=== PATIENT | male | born 1985 | race Caucasian/White ===

== ENCOUNTER 2020-05-25 05:17 | Emergency (ER) | payer OTHER ==
--- NOTE | 2020-05-25 05:28 | ED Physician Documentation ---
PD HPI NECK PAIN - Stated complaint Stated Complaint: NECK/SHOULDERS/ARMS PX - Chief complaint Chief Complaint: Back Pain - History obtained from History obtained from: Patient - History of Present Illness Timing - onset: How many months ago (1-2 months of on and off pain in neck and shoulders. More consistent and painful the past several days. No acute injury. 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 Started some machine workouts the past 1-2 weeks, but this was started hurting before he enrolle) Timing - details: Gradual onset, Still present (more consistent the past few days.), Waxing and waning Location: Upper, Right, Left, Other (hurts in trapezius insertion areas and extends to lateral suprascapular area.) Quality: Pain, Spasm, Aching Associated symptoms: Other (no radiation to arms/hands.). No: Fever, Weakness, Numbness Worsened by: Movement, Lifting, Other (he feels sore at work, and works as Tech with monitor/keyboard being in lower position that requires him to hunch and look downward.) Contributing factors: Other (he started a Crossfit workout machines 2 weeks ago but was already hurting. He stopped using the machines as neck was hurting more. Pain and tightness are still increasing.). No: Lifting, Twisting, Trauma Similar symptoms before: Has not had sx before Recently seen: Not recently seen Review of Systems Constitutional: denies: Fever, Chills Nose: denies: Rhinorrhea / runny nose, Congestion Throat: denies: Sore throat Respiratory: denies: Cough Skin: denies: Rash, Lesions Neurologic: denies: Focal weakness, Numbness PD PAST MEDICAL HISTORY - Past Medical History Past Medical History: No Cardiovascular: None Respiratory: None Neuro: None Musculoskeletal: None - Present Medications Home Medications: Ambulatory Orders Medication Instructions Recorded Confirmed HYDROcod/ACETAM 5/325 [Millsap 5/325] 1 ea PO Q6H PRN #18 tablet 05/25/20 Ibuprofen [Motrin] 600 mg PO TID PRN #25 tab 05/25/20 tiZANidine [Zanaflex] 4 mg PO Q8H PRN #25 tablet 05/25/20 - Allergies Allergies/Adverse Reactions: Allergies Allergy/AdvReac Type Severity Reaction Status Date / Time No Known Drug Allergies Allergy Verified 05/25/20 05:22 PD ED PE NORMAL - Vitals Vital signs reviewed: Yes - General General: Alert and oriented X 3, Well developed/nourished - Neck Neck: Supple, no meningeal sign, No adenopathy, Other (He has muscle tenderness at the bilateral trapezius insertion areas in the upper neck. There is also spasming and firmness felt on both lateral trapezius muscle areas. No midline tenderness. No rash or sores.) - Derm Derm: Normal color, Warm and dry - Neuro Neuro: Alert and oriented X 3, No motor deficit, No sensory deficit Results - Vitals Vitals: Vital Signs - 24 hr 05/25/20 05:20 Temperature 36.3 C L Heart Rate 65 Respiratory 20 Rate Blood Pressure 173/95 H O2 Saturation 98 Oxygen O2 Source Room air PD MEDICAL DECISION MAKING - ED course Complexity details: considered differential (Neck and shoulder muscular pain with tenderness. He has been using a massager that helps some but not consist ently. No red flags to suggest need for imaging or labs.), d/w patient Departure - Departure Disposition: 01 Home, Self Care Clinical Impression: Strain of neck muscle Qualifiers: Encounter type: initial encounter Qualified Code(s): S16.1XXA - Strain of mu scle, fascia and tendon at neck level, initial encounter Condition: Stable Record reviewed to determine appropriate education?: Yes Instructions: ED Spasm Neck No Injury Prescriptions: Ibuprofen [Motrin] 600 mg PO TID PRN #25 tab PRN Reason: Pain HYDROcod/ACETAM 5/325 [Millsap 5/325] 1 ea PO Q6H PRN #18 tablet PRN Reason: Pain tiZANidine [Zanaflex] 4 mg PO Q8H PRN #25 tablet PRN Reason: Spasms Comments: Heat and stretching for the neck and upper back muscles to reduce spasming. Continue with the massager that you have. And ibuprofen anti-inflammatory 3 times a day for a week. Take with food. Also use tizanidine muscle relaxant 3-4 times a day as directed. This will help with stiffness and spasms. To these add Tylenol or hydrocodone as needed for pains. Recheck if not improved well over the next several days and resolved over a week. Try to adjust your ergonomics and positioning of your monitor and keyboard at work so that you are in a more comfortable and heads up neutral position. This will help your neck muscles.
[2020-05-25] MEDS ORDERED: HYDROcod/ACET 5/325 Prepack 4 PO STA (05:43)
[2020-05-25] MEDS ORDERED: methocarbamoL 500 MG TABLET PO STA (05:43)
[2020-05-25] MEDS ORDERED: ACETAMINOPHEN 500 MG TABLET PO STA (05:43)
[2020-05-25] MEDS ORDERED: KETOROLAC 30 MG/ML VIAL IM STA (05:43)
[2020-05-25 06:10] VITALS: BP 168/98
== END 2020-05-25 06:09 | disposition home or self-care (01) ==
LOC: ED 05:17
DX: S16.1XXA Strain of muscle, fascia and tendon at neck level, initial encounter (principal); X50.1XXA Overexertion from prolonged static or awkward postures, initial encounter; Y93.89 Activity, other specified; Y99.0 Civilian activity done for income or pay; M62.830 Muscle spasm of back
CPT/HCPCS: 96372; 99283; A9270